=== PATIENT | male | born 1995 | race Hispanic/Latino ===

== ENCOUNTER 2020-08-23 07:55 | Emergency (ER) | payer OTHER, SELFPAY ==
[2020-08-23] MEDS ORDERED: KETOROLAC 30 MG/ML INJ ONE (08:42)
[2020-08-23] MEDS ORDERED: dexAMETHasone 10 MG/ML VIAL ONE (08:44)
--- NOTE | 2020-08-23 08:57 | RAD REPORT ---
EXAM DESCRIPTION: RAD - Thoracic Spine Ap/Lat - 08/23/2020 8:48 am CLINICAL HISTORY: PAIN Radiculopathy COMPARISON: No comparisons FINDINGS: The thoracic spine vertebral body heights and disc spaces are largely maintained. No acute compression fracture. No significant malalignment. IMPRESSION: Negative study.
--- NOTE | 2020-08-23 09:00 | RAD REPORT ---
EXAM DESCRIPTION: RAD - Ribs Left - 08/23/2020 8:48 am CLINICAL HISTORY: PAIN COMPARISON: No comparisons FINDINGS: No displaced rib fracture seen. No aggressive rib lesion evident.
--- NOTE | 2020-08-23 09:11 | EDPHYS ---
Physician Documentation [facility] Name: Oracio Mcbride Jr Age: 25 yrs Sex: Male : 1995 Arrival Date: 08/23/2020 Time: 07:56 Bed 20 Private MD: ED Physician López Posada HPI: 08/23 08:10 This 25 yrs old Male presents to ER via Unassigned with complaints of Back rn Pain. 08:10 The patient presents with pain that is acute. The symptoms are located in the left rn subscapular area and left mid back. Onset: The symptoms/episode began/occurred today. The pain does not radiate. Associated signs and symptoms: Pertinent negatives: abdominal pain, chest pain, constipation, dysuria, fever, hematuria, incontinence, nausea, numbness, tingling, urinary retention, vomiting, weakness. Modifying factors: The patient symptoms are alleviated by remaining still, the patient symptoms are aggravated by any movement. Severity of symptoms: At their worst the symptoms were. 08:11 The patient has experienced a previous episode. The patient has not recently seen a rn physician. Reports left flank/subscapular pain, began today, worse with movement, intermittent, feels like tightens at times. Reports fell approx 1 month ago 12 ft off scaffold, felt pain at that time, and got better. Not seen at that time. . Historical: - Allergies: 08:02 No Known Allergies; aa5 - Home Meds: 08:02 Fluoxetine Oral [Active]; Bupropion Oral [Active]; aa5 - PMHx: 08:02 Anxiety; Depression; aa5 - PSHx: 08:02 Hernia repair; aa5 - Immunization history:: Adult Immunizations up to date, Client reports receiving the 1st dose of the Covid vaccine, August 2020. - Social history:: Smoking status: Patient denies any tobacco usage or history of. Smoking status: . - Family history:: not pertinent. - Hospitalizations: : No recent hospitalization is reported. ROS: 08:11 Constitutional: Negative for fever, chills, and weight loss, Neck: Negative for injury, rn pain, and swelling, Cardiovascular: Negative for chest pain, palpitations, and edema, Respiratory: Negative for shortness of breath, cough, wheezing, and pleuritic chest pain, Abdomen/GI: Negative for abdominal pain, nausea, vomiting, diarrhea, and constipation, Back: + left flank/subscapular pain : Negative for injury, bleeding, discharge, and swelling, MS/Extremity: Negative for injury and deformity, Skin: Negative for injury, rash, and discoloration, Neuro: Negative for headache, weakness, numbness, tingling, and seizure. Exam: 08:11 Constitutional: This is a well developed, well nourished patient who is awake, alert, rn and in no acute distress. Chest/axilla: Normal chest wall appearance and motion. Nontender with no deformity. No lesions are appreciated. Cardiovascular: Regular rate and rhythm. No pulse deficits. Respiratory: Speaking full sentences. No increased work of breathing, no retractions or nasal flaring. Back: No spinal tenderness. No costovertebral tenderness. No ecchymosis of flanks or sides. No focal tenderness. MS/ Extremity: Pulses equal, no cyanosis. Neurovascular intact. Full, normal range of motion. Equal circumference. Neuro: Awake and alert, GCS 15, oriented to person, place, time, and situation. Cranial nerves II-XII grossly intact. Motor strength 5/5 in all extremities. Sensory grossly intact. Cerebellar exam normal. Normal gait. Vital Signs: 08:02 Temp 98.0(O); Weight 90.72 kg (R); Height 6 ft. 0 in. (182.88 cm) (R); aa5 08:17 BP 117 / 65; Pulse 109; Resp 18; Pulse Ox 100% on R/A; Weight 90.72 kg; Height 6 ft. ap3 (182.88 cm); 09:16 BP 126 / 73; Pulse 58; Pulse Ox 99% on R/A; ap3 08:17 Body Mass Index 27.12 (90.72 kg, 182.88 cm) ap3 MDM: 08:02 Patient medically screened. rn 08:11 ED course: Having intermittent pain during exam, that lasts for seconds, describes rn cramps then lets up.. 09:09 Differential diagnosis: Fracture sprain, rib injury, muscle spasm. Data reviewed: vital rn signs, nurses notes, radiologic studies, plain films, and as a result, I will discharge patient. Counseling: I had a detailed discussion with the patient and/or guardian regarding: the historical points, exam findings, and any diagnostic results supporting the discharge/admit diagnosis, radiology results, the need for outpatient follow up, to return to the emergency department if symptoms worsen or persist or if there are any questions or concerns that arise at home. Response to treatment: the patient's symptoms have mildly improved after treatment, and as a result, I will discharge patient. Special discussion: I discussed with the patient/guardian in detail that at this point there is no indication for admission to the hospital. It is understood, however, that if the symptoms persist or worsen the patient needs to return immediately for re-evaluation. ED course: No acute findings on plain films of ribs or spine. Will dc home withmuscle relaxer, heat, rest, and return precautions.. 08/23 08:09 Order name: XRAY Thoracic Spine (Ap/lat); Complete Time: 09:01 rn 08/23 08:09 Order name: XRAY Ribs LEFT; Complete Time: 09:01 rn Administered Medications: 08:34 Drug: Decadron (dexamethasone) 10 mg Route: IM; Site: right gluteus; ap3 09:15 Follow up: Response: No adverse reaction ap3 08:34 Drug: TORadol (ketorolac) 30 mg Route: IM; Site: right gluteus; ap3 09:15 Follow up: Response: No adverse reaction ap3 Disposition: 08/23/20 09:10 Discharged to Home. Impression: Muscle spasm of back. - Condition is Stable. - Discharge Instructions: Muscle Cramps and Spasms, Back Exercises. - Prescriptions for Cyclobenzaprine 10 mg Oral Tablet - take 1 tablet by ORAL route every 8 hours As needed; 15 tablet. Medrol (Varun) 4 mg Oral Tablets, Dose Pack - take 1 tablet by ORAL route as directed - follow package instructions; 1 packet. - Medication Reconciliation Form, Thank You Letter, Antibiotic Education, Prescription Opioid Use form. - Follow up: Private Physician; When: As needed; Reason: Recheck today's complaints, Re-evaluation by your physician. - Problem is new. - Symptoms have improved. Signatures: Dispatcher [employer] EDMS López Posada MD MD rn Calderon, Audri RN RN aa5 Melissa Maciel RN RN ap3 Corrections: (The following items were deleted from the chart) 09:29 09:10 08/23/2020 09:10 Discharged to Home. Impression: Muscle spasm of back. Condition ap3 is Stable. Forms are Medication Reconciliation Form, Thank You Letter, Antibiotic Education, Prescription Opioid Use. Follow up: Private Physician; When: As needed; Reason: Recheck today's complaints, Re-evaluation by your physician. Problem is new. Symptoms have improved. rn
--- NOTE | 2020-08-23 09:11 | ER ---
Nurse's Notes [facility] Name: Oracio Mcbride Jr Age: 25 yrs Sex: Male : 1995 Arrival Date: 08/23/2020 Time: 07:56 Bed 20 Private MD: Diagnosis: Muscle spasm of back Presentation: 08/23 08:02 Chief complaint: Chief complaint: Patient states: pain to left posterior aspect of aa5 lower rib cage that is intermittent and pt describes pain as "tight and spasms", pain began today. Pt reports he fell approximately 12 ft from scaffold 1-2 months ago. Pt denies recent illness, denies cough, denies fever. 08:02 Acuity: JEAN PAUL 3 aa5 08:02 Coronavirus screen: At this time, the client does not indicate any symptoms associated aa5 with coronavirus-19. Ebola Screen: Patient negative for fever greater than or equal to 101.5 degrees Fahrenheit, and additional compatible Ebola Virus Disease symptoms. Initial Sepsis Screen: Does the patient meet any 2 criteria? No. Patient's initial sepsis screen is negative. Does the patient have a suspected source of infection? No. Patient's initial sepsis screen is negative. Risk Assessment: Do you want to hurt yourself or someone else? Patient reports no desire to harm self or others. 08:02 Method Of Arrival: Ambulatory aa5 08:02 Onset of symptoms was August 2020. aa5 Historical: - Allergies: 08:02 No Known Allergies; aa5 - Home Meds: 08:02 Fluoxetine Oral [Active]; Bupropion Oral [Active]; aa5 - PMHx: 08:02 Anxiety; Depression; aa5 - PSHx: 08:02 Hernia repair; aa5 - Immunization history:: Adult Immunizations up to date, Client reports receiving the 1st dose of the Covid vaccine, August 2020. - Social history:: Smoking status: Patient denies any tobacco usage or history of. Smoking status: . - Family history:: not pertinent. - Hospitalizations: : No recent hospitalization is reported. Screenin:18 Abuse screen: Denies threats or abuse. Nutritional screening: No deficits noted. ap3 Tuberculosis screening: No symptoms or risk factors identified. Fall Risk Fall in past 12 months (25 points). No secondary diagnosis (0 pts). No IV (0 pts). Ambulatory Aid- None/Bed Rest/Nurse Assist (0 pts). Gait- Normal/Bed Rest/Wheelchair (0 pts) Mental Status- Oriented to own ability (0 pts). Total Neely Fall Scale indicates Low Risk Score (25-44 pts). Fall prevention measures have been instituted. Family Present and informed to notify staff if they need to leave bedside. Assessment: 08:14 General: Appears comfortable, Behavior is calm, cooperative, appropriate for age. Pain: ap3 Complains of pain in left mid back Pain began PATIENT STATES HE FELL FROM A SCAFFOLD APPROX 6 WEEKS AGO, AND INJURED HIS BACK. PATIENT STATES THE PAIN HE FEELS NOW IS SIMILAR TO THE PAIN FROM THE FALL. Aggravated by increased activity. Neuro: Level of Consciousness is awake, alert, obeys commands, Oriented to person, place, time, situation, Gait is steady. Cardiovascular: Capillary refill < 3 seconds. Respiratory: Airway is patent Respiratory effort is even, unlabored, Respiratory pattern is regular, symmetrical. GI: No signs and/or symptoms were reported involving the gastrointestinal system. : No signs and/or symptoms were reported regarding the genitourinary system. EENT: No signs and/or symptoms were reported regarding the EENT system. Derm: No signs and/or symptoms reported regarding the dermatologic system. Musculoskeletal: Reports pain in left mid back. Vital Signs: 08:02 Temp 98.0(O); Weight 90.72 kg (R); Height 6 ft. 0 in. (182.88 cm) (R); aa5 08:17 BP 117 / 65; Pulse 109; Resp 18; Pulse Ox 100% on R/A; Weight 90.72 kg; Height 6 ft. ap3 (182.88 cm); 09:16 BP 126 / 73; Pulse 58; Pulse Ox 99% on R/A; ap3 08:17 Body Mass Index 27.12 (90.72 kg, 182.88 cm) ap3 ED Course: 07:56 Patient arrived in ED. am2 08:02 López Posada MD is Attending Physician. rn 08:02 Arm band placed on Patient placed in an exam room. aa5 08:03 Melissa Maciel, YASMEEN is Primary Nurse. ap3 08:18 Triage completed. aa5 08:19 Patient has correct armband on for positive identification. Call light in reach. Adult ap3 w/ patient. Pulse ox on. NIBP on. 08:35 Patient moved to radiology via wheelchair. ap3 08:48 XRAY Thoracic Spine (Ap/lat) In Process Unspecified. EDMS 08:48 XRAY Ribs LEFT In Process Unspecified. EDMS 08:51 Patient moved back from radiology. ap3 09:29 Patient did not have IV access during this emergency room visit. ap3 09:29 No provider procedures requiring assistance completed. ap3 Administered Medications: 08:34 Drug: Decadron (dexamethasone) 10 mg Route: IM; Site: right gluteus; ap3 09:15 Follow up: Response: No adverse reaction ap3 08:34 Drug: TORadol (ketorolac) 30 mg Route: IM; Site: right gluteus; ap3 09:15 Follow up: Response: No adverse reaction ap3 Outcome: 09:10 Discharge ordered by . rn 09:28 Discharged to home ambulatory, with friend. ap3 09:28 Condition: stable 09:28 Discharge instructions given to patient, friend, Instructed on discharge instructions, follow up and referral plans. medication usage, Demonstrated understanding of instructions, follow-up care, medications, Prescriptions given X 2. 09:29 Patient left the ED. ap3 Signatures: Dispatcher [employer] EDLópez Still MD MD rn Calderon, Audri RN RN [email or web address] Melissa Olivares am2 Melissa Maciel RN RN ap3
[2020-08-23 09:33] VITALS: TEMP 98
[2020-08-23 09:35] VITALS: BP 126/73; O2SAT 99
== END 2020-08-23 09:29 | disposition home or self-care (01) ==
LOC: ER 07:55
DX: M62.830 Muscle spasm of back (principal); F41.8 Other specified anxiety disorders
CPT/HCPCS: 72070; 96372; 99284; J1100